=== PATIENT | female | born 1990 | race Two or more races ===

== ENCOUNTER 2021-12-26 01:09 | Emergency (ER) | payer OTHER ==
[~2021-12-26] VITALS: Ht 160 cm; Wt 52.2 kg
--- NOTE | 2021-12-26 01:20 | NUR ---
PT BIBRA 41 C/O FOUND UNRESPONSIVE WITH PINPOINT PUPILS AND SHALLOW RESPIRATIONS S/P SMOKING HEROIN. PT GIVEN 4MG NASAL NARCAN. PT AWAKE AND ANSWERING QUESTIONS. PT DENIES SI/HI. PT ATTACHED TO MONITOR AND POX. WILL CONTINUE TO MONITOR.
--- NOTE | 2021-12-26 01:39 | NUR ---
BLOOD DRAWN AND SENT TO LAB
--- NOTE | 2021-12-26 01:45 | NUR ---
BG 89
--- NOTE | 2021-12-26 01:48 | NUR ---
[facility] AT BEDSIDE
[2021-12-26 02:02] LABS: BASOPHILS % (AUTO) 0.3 % (0.0-2.0); EOSINOPHILS % (AUTO) 1.4 % (0.0-6.0); HEMATOCRIT 33 % (33-45); LYMPHOCYTES # (AUTO) 0.9 K/uL (0.8-4.8); LYMPHOCYTES % (AUTO) 18.5 % (20.0-44.0); MEAN CORPUSCULAR HGB CONC 34 g/dl (31.0-36.0); MEAN CORPUSCULAR VOLUME 92 fL (82-100); MONOCYTES # (AUTO) 0.4 K/uL (0.1-1.30); MONOCYTES % (AUTO) 8.1 % (2.0-12.0); NEUTROPHILS # (AUTO) 3.6 K/uL (1.8-8.9); NEUTROPHILS % (AUTO) 71.7 % (43.0-81.0); PLATELET COUNT (AUTO) 180 K/uL (150-450); RED BLOOD CELL COUNT(AUTO) 3.56 MIL/uL (4.0-5.2)
[2021-12-26 02:11] LABS: CALCIUM, SERUM 8.2 mg/dL (8.5-10.1); CREATININE 0.6 mg/dL (0.6-1.3); POTASSIUM 3.5 mmol/L (3.5-5.1)
[2021-12-26 02:17] LABS: ALBUMIN 3.3 g/dL (3.4-5.0); BILIRUBIN,DIRECT 0.1 mg/dL (0.0-0.2); BILIRUBIN,TOTAL 0.4 mg/dL (0.2-1.0); TOTAL PROTEIN, SERUM 7.2 g/dL (6.4-8.2)
--- NOTE | 2021-12-26 02:30 | NUR ---
Patient is resting comfortably in bed with eyes closed. Easily aroused. VSS
--- NOTE | 2021-12-26 03:45 | NUR ---
Patient is resting comfortably in bed with eyes closed. Easily aroused. VSS
--- NOTE | 2021-12-26 04:51 | NUR ---
PATIENT IS AWAKE, A, OX3. BREATHING EVENLY. REPORTED FEELING WELL AND WILLING TO LEAVE. DENIED SI/HI. AMBULATOR WITH STEADY GAITS. PO INTAKE TOLERATED WELL. MADE AWARE.
--- NOTE | 2021-12-26 05:51 | NUR ---
IV removed. Catheter intact and site benign. Pressure and 4x4 applied to site. No bleeding noted.Patient discharged to home in stable condition. Written and verbal after care instructions given. Patient verbalizes understanding of instruction.
[2021-12-26 05:52] VITALS: BP 132/79
== END 2021-12-26 05:51 | disposition home or self-care (01) ==
LOC: ER 01:14
DX: T40.1X1A Poisoning by heroin, accidental (unintentional), initial encounter (principal); R40.4 Transient alteration of awareness; Y92.89 Other specified places as the place of occurrence of the external cause
CPT/HCPCS: 36415; 80048-TC; 80076-TC; 82962-TC; 85025-TC; G0480